=== PATIENT | male | born 1945 | race Caucasian/White ===

== ENCOUNTER 2022-10-06 11:22 | Outpatient (CLI) | payer MEDICARE, BC, SELFPAY ==
[2022-10-06 21:33] LABS: Chloride* 105 mmol/L (96-114)
[2022-10-06 21:34] LABS: Potassium* 4.5 mmol/L (3.6-5.1); Sodium* 141 mmol/L (135-149)
[2022-10-06 21:37] LABS: Blood Urea Nitrogen* 19 mg/dL (7-30); Carbon Dioxide* 30 mmol/L (20-32); Cholesterol* 176 mg/dL (90-199); Creatinine* 1.2 mg/dL (0.5-1.5); Estimated Glomerular Filt Rate 63 ml/min; Glucose* 107 mg/dL (60-115); Uric Acid* 6.9 mg/dL (2.2-8.4)
[2022-10-06 21:38] LABS: Calcium* 9.5 mg/dL (8.4-10.6); HDL Cholesterol* 43 mg/dL (>=40); LDL Cholesterol Calculated 104 mg/dL (<100); Triglycerides* 147 mg/dL (40-149)
[2022-10-06 22:06] LABS: PSA Screen* 0.62 ng/mL (0.10-4.00)
[2022-10-06 22:25] LABS: Vitamin B12* 335 pg/mL (243-894)
== END 2022-10-06 11:23 | disposition home or self-care (01) ==
PROVIDERS: PCP Emergency Medicine; Visit Provider Emergency Medicine
DX: Z00.00 Encounter for general adult medical examination without abnormal findings (principal); M10.9 Gout, unspecified; D53.9 Nutritional anemia, unspecified; E78.5 Hyperlipidemia, unspecified; I10 Essential (primary) hypertension; Z12.5 Encounter for screening for malignant neoplasm of prostate
CPT/HCPCS: 80048; 80061; 82607; 84153; 84550

== ENCOUNTER 2023-10-11 13:17 | Outpatient (CLI) | payer MEDICARE, BC, SELFPAY | END 2023-10-11 13:18 | disposition home or self-care (01) | PROVIDERS: PCP Emergency Medicine; Visit Provider Emergency Medicine | DX: I10 Essential (primary) hypertension (principal); E78.5 Hyperlipidemia, unspecified; D53.9 Nutritional anemia, unspecified; Z12.5 Encounter for screening for malignant neoplasm of prostate; Z80.42 Family history of malignant neoplasm of prostate | CPT/HCPCS: 80053; 80061; 82607; G0103 ==

== ENCOUNTER 2024-10-25 11:50 | Outpatient (CLI) | payer MEDICARE, SELFPAY | END 2024-10-25 11:51 | disposition home or self-care (01) | PROVIDERS: PCP Emergency Medicine; Visit Provider Emergency Medicine | DX: R74.01 Elevation of levels of liver transaminase levels (principal); D53.9 Nutritional anemia, unspecified; Z13.6 Encounter for screening for cardiovascular disorders | CPT/HCPCS: 80053; 80061; 82607 ==